=== PATIENT | female | born 1955 | race Caucasian/White ===

== ENCOUNTER 2016-09-21 22:46 | Emergency (ER) | payer MEDICARE, OTHER ==
--- NOTE | ~2016-09-21 | CR72 ---
[facility] A Service of [facility] & [facility] RADIOLOGY TEXT RESULTS PATIENT: GAURI SEARS LOCATION: [facility] : 55 UNIT #: [id number] AGE: [address]: Ubaldo Carmona MD SEX: F ORDER DR: [id number] [facility] [address] [place], [place] [address] [id number] E MR#: [id number] Acc #: [id number] NAME: GAURI SEARS : 1955 SEX: F STUDY DATE/TIME: 09/21/2016 22:38 UNIT: [facility] ROOM: STUDY DESCRIPTION: CR Chest Single View Portable Attending Physician: Ubaldo Carmona M.D. Ordering Physician: Ubaldo Carmona M.D. Primary Care Physician: Chris Cochran Jr., M.D. MEDICAL IMAGING REPORT This report is preliminary unless electronic signature is present EXAM Portable chest 09/21 at 22:38 INDICATIONS Cough with flu-like symptoms and congestion that started today. FINDINGS AP portable chest compared with 04/26/2016. The heart remains enlarged. The lungs are clear. No pneumothorax is seen. IMPRESSION Stable cardiomegaly. No active disease. Dictated by... Ubaldo Joy Jr., M.D. THIS IS AN ELECTRONICALLY VERIFIED REPORT Ubaldo Joy Jr., M.D. at 09/22/2016 2:40 AM HENRY/kylee TD: 09/22/2016 01:57 JOB #: [id number] MEDICAL IMAGING REPORT Page 1 of 1 COPY
[~2016-09-21 22:46] MED LIST: ATENOLOL PO; CADUET 5 MG/401 TAB; CALCITRIOL PO; CALCITRIOL0.25 MCG PO; CALCIUM 600 + D1 TA1 PO; CLARITIN10 MG PO; COMBIVENT INH14.7 GM INH; COMBIVENT MININEB INH; COMBIVENT RESPIMAT INH; CRESTOR PO; DARVOCET-N 1001 TAB PO; IMDUR PO; KETOPROFEN PO; KLONOPIN PO; LASIX PO; LEVAQUIN PO; LIPITOR PO; LORTAB ELIXIR480 ML PO; MAGNESIUM PO; NICOTINE T1 PATCH .2; NITROGYLCERIN SUBLINGUAL; NITROLINGUAL12 G1 TL; NORVASC PO; PAXIL CR; PHENERGAN PO; PHENERGAN25 MG PO; PLAVIX PO; PREVACID PO; PROTONIX; RENAGEL400 MG PO; RENAGEL403 MG; ROCALTROL; SEROQUEL; SINGULAIR PO; SYNTHROID PO; TEMAZEPAM PO; TOPROL XL PO; TRAZODONE; VICODIN PO; VITAMIN B 6 PO; VITAMIN D1000 UNIT PO; ZOCOR PO
[2016-09-21 23:27] LABS: BASOPHIL% 0.2 % (0-2.5); HEMATOCRIT 31.8 % (35.0-45.0); HEMOGLOBIN 10.1 gm/dL (12.0-16.0); LYMPHOCYTE# 1.7 X10e3 (1.0-3.5); LYMPHOCYTE% 12.2 % (17.0-45.0); MEAN CELL VOLUME 73.6 FL (83-96); MEAN CORPUSCULAR HEMOGLOBIN 23.4 PG (28-34); MEAN CORPUSCULAR HGB CONC 31.7 g/dL (30-36); MEAN PLATELET VOLUME 8.2 FL (6.5-11.5); MONOCYTE# 1.4 X10e3 (0-1.0); MONOCYTE% 9.8 % (3.0-12.0); NEUTROPHIL# 10.8 X10e3 (1.5-7.1); NEUTROPHIL% 77.8 % (40-75); PLATELET COUNT 325 X10e3 (140-420); RED BLOOD COUNT 4.33 X10e (3.90-5.30); RED CELL DISTRIBUTION WIDTH 16.7 % (11.0-15.5); WHITE BLOOD COUNT 13.9 X10e3 (4.0-10.5)
[2016-09-21 23:30] LABS: DIFF IND NO
[2016-09-21 23:52] LABS: BILIRUBIN, DIRECT 0.2 mg/dL (0.0-0.2); BILIRUBIN,INDIRECT 0.6 mg/dL (0.0-0.9); BILIRUBIN,TOTAL 0.8 mg/dL (0.2-2.0); BUN/CREATININE RATIO 11.25; CALCIUM SERUM 8.3 mg/dL (8.4-10.2); CREATININE SERUM 0.8 mg/dL (0.6-1.4); GLOM FILT RATE Estimated 79.6 mL/min (>60)
[2016-09-22 00:08] LABS: POTASSIUM 2.9 mmol/L (3.5-5.1)
== END 2016-09-22 01:10 | disposition home or self-care (01) ==
LOC: CED 22:46
PROVIDERS: Emergency Medicine
DX: E87.6 Hypokalemia (principal); R06.02 Shortness of breath; J44.9 Chronic obstructive pulmonary disease, unspecified; Z88.0 Allergy status to penicillin; Z88.5 Allergy status to narcotic agent; Z91.018 Allergy to other foods; Z91.040 Latex allergy status
CPT/HCPCS: 36415; 71010; 80048; 80076; 82947; 83690; 85025; 94640; 96361; 96374; 99284